=== PATIENT | male | born 1995 | race Caucasian/White ===

== ENCOUNTER → 2017-06-24 | Outpatient (CLI) | payer OTHER ==
--- NOTE | 2017-06-24 17:49 | DIAGNOSTIC IMAGING REPORT ---
MRI LEFT KNEE NO CONTRAST CLINICAL HISTORY: Left knee pain COMPARISON STUDY: No previous studies for comparison. FINDINGS: Imaging was performed the sagittal, coronal, and axial planes. The patellar retinacular structures appear intact. The medial and lateral collateral ligaments appear intact. The anterior cruciate ligament appears intact. There is age-indeterminate irregularity of the femoral insertion of the posterior cruciate ligament No meniscal tears are visualized. 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 There is a suspected displaced fragment into the intercondylar notch. There is mild irregularity of the overlying cartilage. The patellar and quadriceps tendons appear intact. There is a trace joint effusion IMPRESSION: 1. 27 x 18 x 10 mm focus of osteochondritis desiccation and involving the medial femoral condyle. There is a suspected displaced fragment into the intercondylar notch 2. Age-indeterminate irregularity of the posterior cruciate ligament 3. No meniscal tears. No evidence of interposition ligament tear Electronically signed by: Jefferson Beard M.D. 06/24/2017 5:47 PM Dictated Date/Time: 06/24/2017 5:40 PM
== END | disposition home or self-care (01) ==
LOC: C.MRIBC 16:28
PROVIDERS: ATTEND Orthopaedic Surgery
DX: M25.562 Pain in left knee (principal)